=== PATIENT | female | born 1975 | race African-American/Black ===

== ENCOUNTER 2016-09-15 00:03 | Inpatient (IN) | payer OTHER ==
[2016-09-15] VITALS (12 sets, daily range): BP systolic 112–148; BP diastolic 63–87
[~2016-09-15] VITALS: Ht 167.6 cm; Wt 68.0 kg
--- NOTE | ~2016-09-15 | EKG ---
[address] [place] [address] ELECTROCARDIOGRAM REPORT Name: AGUSTO TAVAREZA Room #: 422-P ADM IN M.R.#: [id number] Admission: 09/15/16 Attend Phys: John Blanco MD Discharge: Date of : 77 Report #: [id number] THIS REPORT FOR: //name// [facility] ED Test Date: 2016-09-15 Test Time: 00:12:04 Pat Name: ESME TAVAREZ Department: Room: 422 Gender: F Environmental Science Program Director: ROLA : 1975 Requested By: Heather Sanchez Order Number: [id number] MD: Brad Daniel Measurements Intervals [place] Rate: 76 P: 78 DC: 175 QRS: 37 QRSD: 106 T: 49 QT: 376 QTc: 423 Interpretive Statements Sinus rhythm Prominent P waves, nondiagnostic Probable left ventricular hypertrophy ST elev, probable normal early repol pattern No previous ECG available for comparison Electronically Signed On 09-15-2016 15:31:12 CDT by Brad Daniel [email or web address] <ELECTRONICALLY SIGNED> By: rBad Daniel MD 09/15/16 1531 001 001 Brad Daniel MD /JEROME
--- NOTE | ~2016-09-15 | HC ---
[facility] [place] [address] CONSULTATION Name: ESME TAVAREZ Room #: 422-P [facility] IN .R.#: [id number] Admission: 09/15/16 Attend Phys: John Blanco MD Discharge: Date of : 77 Report #: [id number] THIS REPORT FOR: //name// CC: [facility] physician/PCP Jhon Blanco REASON FOR CONSULTATION: Chest pain. HISTORY OF PRESENT ILLNESS: The patient is a 40-year-old female with history of tobacco abuse, hypertension and strong family history for CAD who presents to the emergency room with chest pain. She reports that she works at [employer] and was having some chest heaviness radiating down her right arm, lasting about 20 minutes and resolved on its own. She had a second episode that was similar and more intense that resulted in some shortness of breath. She is currently chest pain free. She was found to be severely anemic and has received a blood transfusion. Denies PND, orthopnea. Does have some shortness of breath from climbing stairs. Denies presyncope or syncope. PAST MEDICAL HISTORY: 1. Hypertension. 2. Tobacco abuse. 3. Polycystic ovarian disease. 4. Heavy menses. SOCIAL HISTORY: She smokes. 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 FAMILY HISTORY: Significant for coronary artery disease and aortic dissection. ALLERGIES: IODINE, CODEINE, LATEX. MEDICATIONS: Have been reviewed including verapamil. REVIEW OF SYSTEMS: Twelve point review of systems was performed and was negative other than some nausea, vomiting after the blood transfusion. PHYSICAL EXAMINATION: VITAL SIGNS: Temperature is 36.8, pulse 53, respirations 16, blood pressure 135/75, sats 100%. GENERAL: No acute distress. HEENT: Oropharynx clear. NECK: Supple, no thyromegaly. HEART: Regular rate and rhythm with no murmurs, rubs, gallops. She does not have elevated jugular venous pressure. LUNGS: Clear to auscultation bilaterally. ABDOMEN: Soft, nontender, nondistended with no hepatosplenomegaly. EXTREMITIES: There is no clubbing, cyanosis, edema. NEUROLOGIC: Cranial nerves 2-12 are intact. [facility] [address] [place] [address] CONSULTATION Name: ESME TAVAREZ Room #: 422-P [facility] IN .R.#: [id number] Admission: 09/15/16 Attend Phys: John Blanco MD Discharge: Date of : 77 Report #: [id number] LABORATORY DATA: A 12-lead EKG shows sinus rhythm with possible LVH and no ischemic changes. Her labs reveal a hemoglobin of 7.9, potassium 3.8, creatinine 0.8. Troponins negative x 2. Chest x-ray, no acute process. ASSESSMENT AND PLAN: In summary, the patient is a 40-year-old with tobacco abuse, hypertension presenting with chest pain, found to be severely anemic. On exam, pushing over her right chest causes some pain, but she is not entirely sure if this is identical to the pain she experienced at [place]. As such, I recommended that she undergo an echocardiogram given her family history of heart disease as well as a nuclear stress test that she cannot exercise given her recent blood transfusion. She is still very fatigued. We will await these results and further treatment will be dictated by their findings. By: 1201 2103 Brad Daniel MD /nt
--- NOTE | ~2016-09-15 | EXE ---
[facility] [place] [address] STRESS ECHOCARDIOGRAM Name: ESME TAVAREZ Room #: 422-P [facility] IN ..#: [id number] Admission: 09/15/16 Attend Phys: John Blanco MD Discharge: Date of : 77 Date of Service: 09/17/16 1401 Report #: [id number] THIS REPORT FOR: //name// APPROVED REPORT Exam: Stress Echocardiogram Reason for Exam: Chest pain Patient Location: Echo lab Stress Nurse: Qi Wilkins RN HR: 75 bpm Rhythm: NSR Medical History Medical History: HTN Cardiac Risk Factors: HTN, FHX of CAD Exercise History: Indeterminate Procedure The patient underwent an Exercise Stress Test using the Jose Protocol. Blood pressure, heart rate, and EKG were monitored. An Echocardiogram was performed by diagnostic technician in four stages in quad fashion. At peak stress, four selected images were obtained and placed side by side with resting images for comparison. Testing Details Test: Exercise stress testing was performed using a Jose protocol. HR Resting HR: 75 bpm Max Heart Rate (APMHR): 181 bpm Max HR Achieved: 169 bpm Target HR (85% APMHR): 153 bpm % of APMHR: 93 Recovery HR: 83 bpm HR response to stress: Normal HR response to stress BP Resting BP: 178/104 mmHg Max BP: 182/96 mmHg Recovery BP: 140/72 mmHg ECG Resting ECG: NSR, nonspecific ST-T abnormalities Stress ECG: NSR, nonspecific ST-T abnormalities ST Change: Non-ischemic [facility] [address] [place] [address] STRESS ECHOCARDIOGRAM Name: ESME TAVAREZ Room #: 422-P [facility] IN M.R.#: [id number] Admission: 09/15/16 Attend Phys: John Blanco MD Discharge: Date of : 77 Date of Service: 09/17/16 140 Report #: [id number] Clinical Reason for Termination: Maximal effort Exercise duration: 9.5 min Exercise capacity: 11.7 METs Overall Exercise Capacity for Age: Normal Pre-Stress Echo The resting Echocardiogram showed normal left ventricular contractility with an estimated Ejection Fraction of about 60-65%. Post-Stress Echo The stress Echocardiogram showed normal left ventricular contractility with an estimated Ejection Fraction of about >70%. Clinical Normal augmentation of myocardial wall segments using a 17 segment model. Conclusion No clinical, EKG or echocardiographic evidence for ischemia. No prior study available for comparison. Other Information Study Quality: Excellent <Conclusion> No clinical, EKG or echocardiographic evidence for ischemia. <ELECTRONICALLY SIGNED> By: Alfie Olivo MD 09/17/16 140 140 1401 Alfie Olivo MD /INF
[~2016-09-15 00:03] MED LIST: COMPAZINE25 MG RECTAL; TOPAMAX SPRINKL15 M1; TORADOL 10 MG T10 MG PO
[2016-09-15] MEDS ORDERED: VERAPAMIL HCL80 MG PO (00:16)
[2016-09-15 00:55] LABS: RDW 20.2 % (10.5-14.5)
[2016-09-15 00:57] LABS: HEMATOCRIT 22.1 % (37.0-47.0); MCH 17.9 pg (26.0-34.0); MCHC 28.9 g/dL (28.0-37.0); MCV 61.8 fL (80.0-100.0); PLATELET COUNT 378 thou/uL (150-400); RBC 3.57 mil/uL (4.20-5.00); WBC 6.3 thou/uL (4.0-11.0)
[2016-09-15 01:01] LABS: MANUAL DIFF YES
[2016-09-15 01:03] LABS: HEMOGLOBIN 6.4 gm/dL (12.0-15.0)
[2016-09-15 01:07] LABS: ANION GAP 12 mmol/L (7-16); BUN 8 mg/dL (7-18); CALCIUM 8.7 mg/dL (8.5-10.1); CHLORIDE 104 mmol/L (98-107); CO2 25 mmol/L (21-32); CREATININE 0.8 mg/dL (0.6-1.3); GLUCOSE 89 mg/dL (70-99); POTASSIUM 3.4 mmol/L (3.5-5.1); SODIUM 141 mmol/L (136-145); TROPONIN-I < 0.04 ng/mL (<0.04-0.07)
[2016-09-15 01:35] LABS: ABSOLUTE NEUTROPHILS 3.1 thou/uL (1.4-8.2); HYPOCHROMASIA 3+; TOTAL CELL COUNT 100
[2016-09-15 01:36] LABS: ANISOCYTOSIS 2+; MACROCYTES 1+; MICROCYTES 3+
[2016-09-15 01:37] LABS: OVALOCYTES 1+
[2016-09-15 01:38] LABS: LARGE PLATELETS MANY; POLYCHROMASIA OCCASIONAL
[2016-09-15 12:06] LABS: % SATURATION 92 % (20-39); ANION GAP 7 mmol/L (7-16); BUN 9 mg/dL (7-18); CALCIUM 8.1 mg/dL (8.5-10.1); CHLORIDE 109 mmol/L (98-107); CO2 25 mmol/L (21-32); CREATININE 0.8 mg/dL (0.6-1.3); GLUCOSE 90 mg/dL (70-99); IRON 312 ug/dL (50-170); POTASSIUM 3.8 mmol/L (3.5-5.1); SODIUM 141 mmol/L (136-145); TIBC 338 ug/dL (250-450); TROPONIN-I < 0.04 ng/mL (<0.04-0.07); UIBC 26 ug/dL
[2016-09-15 12:34] LABS: FERRITIN 2 ng/mL (8-252)
[2016-09-15 15:42] LABS: HEMATOCRIT 26.4 % (37.0-47.0); HEMOGLOBIN 8.1 gm/dL (12.0-15.0)
[2016-09-15 17:17] LABS: HEMATOCRIT 26.5 % (37.0-47.0); HEMOGLOBIN 7.9 gm/dL (12.0-15.0)
[2016-09-16 05:30] VITALS: BP 133/82
[2016-09-16 08:15] VITALS: BP 137/75
[2016-09-16 11:40] VITALS: BP 138/85
[2016-09-16 16:00] VITALS: BP 132/77
[2016-09-16 20:00] VITALS: BP 142/97
[2016-09-17] VITALS: BP 137/92
[2016-09-17 04:47] LABS: HEMATOCRIT 29.4 % (37.0-47.0); HEMOGLOBIN 8.8 gm/dL (12.0-15.0); MCH 20.5 pg (26.0-34.0); MCHC 29.8 g/dL (28.0-37.0); RBC 4.29 mil/uL (4.20-5.00); RDW 25.3 % (10.5-14.5); WBC 7.5 thou/uL (4.0-11.0)
[2016-09-17 04:51] LABS: MCV 68.6 fL (80.0-100.0)
[2016-09-17 05:05] VITALS: BP 132/82
[2016-09-17 07:52] VITALS: BP 143/78
[2016-09-17] MEDS ORDERED: PROTONIX40 M1 PO (14:25)
[2016-09-17] MEDS ORDERED: IRON325 PO (14:25)
[2016-09-17 14:39] VITALS: BP 143/78
== END 2016-09-17 15:10 | disposition home or self-care (01) | DRG 313 ==
LOC: ER 00:03 → EROBS 01:53 → 4E 01:53
PROVIDERS: Emergency Medicine; Hospitalist; Nurse Practitioner
PROC: 30233N1 Transfusion of Nonautologous Red Blood Cells into Peripheral Vein, Percutaneous Approach (ICD-10-PCS; principal; 2016-09-15)
DX: R07.9 Chest pain, unspecified (principal); D64.9 Anemia, unspecified; F17.210 Nicotine dependence, cigarettes, uncomplicated; E87.6 Hypokalemia; N92.0 Excessive and frequent menstruation with regular cycle; I10 Essential (primary) hypertension; E28.2 Polycystic ovarian syndrome; Z82.49 Family history of ischemic heart disease and other diseases of the circulatory system; Z91.041 Radiographic dye allergy status; Z91.040 Latex allergy status; Z88.6 Allergy status to analgesic agent; Z80.9 Family history of malignant neoplasm, unspecified; Z83.3 Family history of diabetes mellitus; Z79.899 Other long term (current) drug therapy; Z71.6 Tobacco abuse counseling
CPT/HCPCS: 10183

== ENCOUNTER 2017-02-20 13:27 | Emergency (ER) | payer BC, OTHER ==
[~2017-02-20] VITALS: Ht 167.6 cm; Wt 72.6 kg
--- NOTE | ~2017-02-20 | EKG ---
[place] [address] [facility] [email or web address] [address] ELECTROCARDIOGRAM REPORT Name: ESME TAVAREZ Room #: DEP JUANA Harris#: [id number] Admission: 02/20/17 Attend Phys: Discharge: 02/20/17 Date of : 77 Report #: [id number] THIS REPORT FOR: //name// [facility] ED Test Date: 2017-02-20 Test Time: 13:32:21 Pat Name: ESME TAVAREZ Department: Room: Gender: F Bacteriologist Pharmaceutical: : 1975 Requested By: Connor Sousa Order Number: [id number] MD: Gabriel Wray Measurements Intervals [place] Rate: 75 P: 82 OR: 177 QRS: 36 QRSD: 101 T: 53 QT: 407 QTc: 455 Interpretive Statements Sinus arrhythmia Probable left atrial enlargement Compared to ECG 09/15/2016 00:12:04 No significant change was found Electronically Signed On 02-21-2017 12:40:40 CDT by Gabriel Wray [email or web address] <ELECTRONICALLY SIGNED> By: Gabriel Wray MD, [facility] 02/21/17 1240 1332 1332 Gabriel Wray MD, FACC /EPI
[~2017-02-20 13:27] MED LIST changes: +IRON325 PO; +PROTONIX40 M1 PO; +VERAPAMIL HCL80 MG PO
[2017-02-20 13:49] LABS: ABSOLUTE NEUTROPHILS 3.6 thou/uL (1.4-8.2); BASOPHILS 1.9 % (0.0-2.0); EOSINOPHILS 0.7 % (0.0-3.0); HEMATOCRIT 30.9 % (37.0-47.0); HEMOGLOBIN 9.7 gm/dL (12.0-15.0); MCH 25.2 pg (26.0-34.0); MCHC 31.5 g/dL (28.0-37.0); MCV 80.1 fL (80.0-100.0); MONOCYTES 5.7 % (1.0-8.0); PLATELET COUNT 322 thou/uL (150-400); POLYS 57.7 % (36.0-66.0); RBC 3.86 mil/uL (4.20-5.00); RDW 19.1 % (10.5-14.5); WBC 6.3 thou/uL (4.0-11.0)
[2017-02-20 13:51] LABS: MANUAL DIFF NO
[2017-02-20 14:00] LABS: ANION GAP 8 mmol/L (7-16); BUN 4 mg/dL (7-18); CALCIUM 8.6 mg/dL (8.5-10.1); CHLORIDE 107 mmol/L (98-107); CO2 25 mmol/L (21-32); CREATININE 0.7 mg/dL (0.6-1.0); GLUCOSE 94 mg/dL (74-106); POTASSIUM 3.4 mmol/L (3.5-5.1); SODIUM 140 mmol/L (136-145)
[2017-02-20 14:08] LABS: TROPONIN-I < 0.04 ng/mL (<0.04-0.07)
[2017-02-20 14:30] LABS: ALBUMIN 3.9 g/dL (3.4-5.0); ALKALINE PHOSPHATASE 57 U/L (46-116); DIRECT BILIRUBIN < 0.1 mg/dL (<0.1-0.3); SGOT 14 U/L (15-37); SGPT 12 U/L (30-65); TOTAL BILIRUBIN 0.2 mg/dL (<0.1-1.0); TOTAL PROTEIN 8.3 g/dL (6.4-8.2)
== END 2017-02-20 17:08 | disposition home or self-care (01) ==
LOC: ER 13:27
PROVIDERS: Emergency Medicine
DX: R07.89 Other chest pain (principal); R20.2 Paresthesia of skin; E28.2 Polycystic ovarian syndrome; F17.210 Nicotine dependence, cigarettes, uncomplicated; F10.99 Alcohol use, unspecified with unspecified alcohol-induced disorder; Z88.5 Allergy status to narcotic agent; Z91.041 Radiographic dye allergy status; Z91.040 Latex allergy status

== ENCOUNTER 2017-11-18 13:59 | Emergency (ER) | payer OTHER ==
[~2017-11-18] VITALS: Ht 165.1 cm; Wt 70.3 kg
[2017-11-18 14:50] LABS: HEMOGLOBIN 6.8 gm/dL (12.0-15.0); MCV 67.8 fL (80.0-100.0); PLATELET COUNT 396 thou/uL (150-400); RBC 3.25 mil/uL (4.20-5.00); RDW 19.7 % (10.5-14.5); WBC 6.1 thou/uL (4.0-11.0)
[2017-11-18 14:56] LABS: CALCIUM 8.6 mg/dL (8.5-10.1); CREATININE 0.7 mg/dL (0.6-1.0); POTASSIUM 3.6 mmol/L (3.5-5.1)
[2017-11-18 15:20] LABS: ABSOLUTE NEUTROPHILS 3.5 thou/uL (1.4-8.2)
[2017-11-18 15:22] LABS: ANISOCYTOSIS 2+; BURR CELLS 1+; HYPOCHROMASIA 2+; MICROCYTES 2+; SCHISTOCYTES OCCASIONAL; TARGET CELLS 1+
[2017-11-18] MEDS ORDERED: IRON325 PO (18:56)
[2017-11-18] MEDS ORDERED: KRISTALOSE20 GM PO (18:56)
== END 2017-11-18 19:30 | disposition home or self-care (01) ==
LOC: ER 13:59
PROVIDERS: Emergency Medicine
DX: D64.9 Anemia, unspecified (principal); N92.0 Excessive and frequent menstruation with regular cycle; E28.2 Polycystic ovarian syndrome; F17.210 Nicotine dependence, cigarettes, uncomplicated; Z91.041 Radiographic dye allergy status; Z88.5 Allergy status to narcotic agent; Z91.040 Latex allergy status

== ENCOUNTER 2018-04-22 12:41 | Inpatient (IN) | payer OTHER ==
[~2018-04-22] VITALS: Ht 167.6 cm; Wt 70.4 kg
[2018-04-22] VITALS (7 sets, daily range): BP systolic 119–157; BP diastolic 58–92
--- NOTE | ~2018-04-22 | P ---
[facility] [place] [address] PROCEDURE REPORT Name: ESME TAVAREZ Room #: 454-P [facility] IN M.R.#: [id number] Admission: 04/22/18 Attend Phys: Jonathan Corrigan MD Discharge: Date of : 77 Report #: [id number] THIS REPORT FOR: //name// CC: [facility] physician/PCP Chris Corrigan MD PROCEDURE: Diagnostic colonoscopy She is a patient of Dr. Jonathan Corrigan and this is Dr. Kimberly Lerma, nela. She is also patient of Dr. Chris Troy. INDICATION FOR PROCEDURE: This patient has had hematochezia. She has had a hemoglobin of 6, but has also experienced some dysfunctional uterine bleeding. It has been difficult for her to get her hemoglobin above 7 with all of the blood loss that she has been experiencing. Colonoscopy is being performed to evaluate for sources other than external hemorrhoids that might explain her painless hematochezia. Informed consent for this procedure was obtained prior to the administration of any medication. The risks of the procedure, which include bleeding, perforation, infection, complications of sedation and the possibility I could miss something have been explained to the patient and she has indicated her consent by signing. Propofol was slowly titrated before and during this procedure for patient comfort by the anesthesia service. Digital rectal exam was performed. The patient has extraordinarily enlarged external hemorrhoids that were nonbleeding at the present time. No internal masses were palpated, although it does feel like she may have some internal hemorrhoids as well. There was no blood on the glove after the digital rectal exam. Then, the Fujinon colonoscope was introduced through the anal sphincter and advanced under direct visualization to the terminal ileum. Findings are noted on withdrawal of the scope. The terminal ileal mucosa appears normal. Cecum, normal mucosa. Ascending colon, normal mucosa. Hepatic flexure, normal mucosa. Transverse colon, normal mucosa. Splenic flexure, normal mucosa. Descending colon, normal mucosa. Sigmoid colon, normal mucosa. Rectum, normal mucosa. Retroflex view does reveal the presence of some internal hemorrhoids that may have been the source of some significant GI blood loss consisting of hematochezia. The scope was withdrawn slowly through the anal canal. The patient does have numerous external hemorrhoids that have been painful and have been bleeding for her as well. The scope was withdrawn. The patient went to the recovery area in stable condition. She tolerated the procedure well. [address] [address] PROCEDURE REPORT Name: ESME TAVAREZ Room #: 454-P ADM IN M.R.#: [id number] Admission: 04/22/18 Attend Phys: Jonathan Corrigan MD Discharge: Date of : 77 Report #: [id number] IMPRESSION: Normal colonoscopic exam to the terminal ileum except for internal and external hemorrhoids as described above. RECOMMENDATIONS: For her to use sitz baths. She can also use lidocaine ointment 5% to the anal area q. 6 hours p.r.n. for pain. I have also recommended her to take Citrucel 500 mg 2 tabs p.o. every day with 16 ounces of liquid to prevent constipation. I would recommend that she have a surgical consultation for evaluation for possible hemorrhoidectomy. Thank you very much once again for allowing me to participate in her care, Dr. Corrigan. <ELECTRONICALLY SIGNED> By: Kimberly Lerma DO 04/24/18 2034 1130 1427 Kimberly Lerma DO /nt
--- NOTE | ~2018-04-22 | EKG ---
[address] [place] [address] ELECTROCARDIOGRAM REPORT Name: ESME TAVAREZ Room #: [facility].RAvril#: [id number] Admission: Attend Phys: Discharge: Date of : 77 Report #: [id number] THIS REPORT FOR: //name// [facility] ED Test Date: 2018-04-22 Test Time: 13:01:03 Pat Name: ESME TAVAREZ Department: Room: Gender: F Wirer Maintenance: LETICIA : 1975 Requested By: Martine Hutchinson Order Number: [id number] MD: Anthony Healy Measurements Intervals [place] Rate: 98 P: 68 MT: 162 QRS: 19 QRSD: 92 T: 49 QT: 367 QTc: 469 Interpretive Statements Sinus rhythm Left atrial enlargement Compared to ECG 02/20/2017 13:32:21 no significant changes Electronically Signed On 04-22-2018 13:39:46 ENGINEER BOOSTER AND EXHAUSTER by Anthony Healy [email or web address] <ELECTRONICALLY SIGNED> By: Anthony Healy MD 04/22/18 1339 1301 1301 Anthony Healy MD /EPI
[~2018-04-22 12:41] MED LIST changes: +KRISTALOSE20 GM PO
[2018-04-22 13:03] LABS: URINE BILIRUBIN NEGATIVE (Negative); URINE BLOOD NEGATIVE (Negative); URINE CLARITY OTHER; URINE COLOR YELLOW; URINE GLUCOSE-RANDOM* NEGATIVE (Negative); URINE KETONES NEGATIVE (Negative); URINE LEUKOCYTES 1+ (Negative); URINE NITRITE NEGATIVE (Negative); URINE PROTEIN (DIPSTICK) NEGATIVE (Negative); URINE SPECIFIC GRAVITY 1.025 (1.005-1.035); URINE UROBILINOGEN 0.2 E.U./dl (0.2-1.0)
[2018-04-22 13:18] LABS: MCH 17.7 pg (26.0-34.0)
[2018-04-22 13:20] LABS: HEMATOCRIT 21.4 % (37.0-47.0); MCHC 28.7 g/dL (28.0-37.0); MCV 61.7 fL (80.0-100.0); PLATELET COUNT 382 thou/uL (150-400); RBC 3.47 mil/uL (4.20-5.00); WBC 5.3 thou/uL (4.0-11.0)
[2018-04-22 13:22] LABS: HEMOGLOBIN 6.1 gm/dL (12.0-15.0)
[2018-04-22 13:26] LABS: CALCIUM 8.5 mg/dL (8.5-10.1); CREATININE 0.9 mg/dL (0.6-1.0); POTASSIUM 3.2 mmol/L (3.5-5.1)
[2018-04-22 14:00] LABS: BACTERIA 1-9 Few /HPF (None Seen); CASTS None Seen /LPF (None Seen); CRYSTALS None Seen /LPF (None Seen); MUCUS 4-6 Moderate strn/LPF (None Seen); SQUAMOUS 4-10 Moderate /LPF (0-3); URINE RBC 3-10 Few /HPF (0-2); URINE WBC 6-15 Few /HPF (0-5)
[2018-04-22 14:20] LABS: % SATURATION 3 % (20-39); IRON 10 ug/dL (50-170); TIBC 350 ug/dL (250-450)
[2018-04-22 14:26] LABS: ABSOLUTE NEUTROPHILS 3.2 thou/uL (1.4-8.2)
[2018-04-22 14:28] LABS: ANISOCYTOSIS 1+; HYPOCHROMASIA 3+; MICROCYTES 3+; OVALOCYTES OCCASIONAL; SCHISTOCYTES 1+; TARGET CELLS OCCASIONAL
[2018-04-22 22:14] LABS: HEMATOCRIT 23.3 % (37.0-47.0); HEMOGLOBIN 6.7 gm/dL (12.0-15.0)
[2018-04-23 04:40] LABS: HEMOGLOBIN 6.6 gm/dL (12.0-15.0)
[2018-04-23 04:42] LABS: HEMATOCRIT 22.6 % (37.0-47.0)
[2018-04-23 08:36] LABS: CALCIUM 8.2 mg/dL (8.5-10.1); CREATININE 0.8 mg/dL (0.6-1.0)
[2018-04-23 08:37] LABS: POTASSIUM 4.7 mmol/L (3.5-5.1)
[2018-04-23 08:59] VITALS: BP 133/85
[2018-04-23 13:48] VITALS: BP 138/81
[2018-04-23 20:05] LABS: HEMATOCRIT 24.8 % (37.0-47.0); HEMOGLOBIN 7.2 gm/dL (12.0-15.0)
[2018-04-24 04:00] VITALS: BP 136/72
[2018-04-24 06:24] LABS: HEMATOCRIT 23.4 % (37.0-47.0); HEMOGLOBIN 6.9 gm/dL (12.0-15.0); MCH 19.9 pg (26.0-34.0); MCHC 29.7 g/dL (28.0-37.0); RBC 3.49 mil/uL (4.20-5.00); RDW 24.2 % (10.5-14.5)
[2018-04-24 06:25] LABS: MCV 66.9 fL (80.0-100.0)
[2018-04-24 06:33] LABS: CALCIUM 7.9 mg/dL (8.5-10.1); CREATININE 0.7 mg/dL (0.6-1.0)
[2018-04-24 06:38] LABS: POTASSIUM 3.6 mmol/L (3.5-5.1)
[2018-04-24 08:26] VITALS: BP 143/89
[2018-04-24 14:31] LABS: HEMATOCRIT 23.7 % (37.0-47.0); HEMOGLOBIN 7.1 gm/dL (12.0-15.0)
[2018-04-24 14:48] LABS: APTT 33.4 Seconds (24.5-32.8); INR 1.1; PROTIME 11.1 Seconds (9.3-11.4)
[2018-04-24 15:05] VITALS: BP 139/75
[2018-04-24 16:29] VITALS: BP 137/79; BP 139/83
[2018-04-24 20:00] VITALS: BP 131/68
[2018-04-25 02:59] VITALS: BP 143/93
[2018-04-25 06:27] LABS: HEMATOCRIT 26.2 % (37.0-47.0); MCH 21.7 pg (26.0-34.0); MCHC 30.7 g/dL (28.0-37.0); MCV 70.7 fL (80.0-100.0); RBC 3.71 mil/uL (4.20-5.00); RDW 27.2 % (10.5-14.5)
[2018-04-25 06:30] LABS: CALCIUM 7.9 mg/dL (8.5-10.1); CREATININE 0.7 mg/dL (0.6-1.0); POTASSIUM 3.9 mmol/L (3.5-5.1)
[2018-04-25 15:58] VITALS: BP 149/86
[2018-04-25 19:37] VITALS: BP 151/69
[2018-04-26 05:06] VITALS: BP 131/65
[2018-04-26 07:04] LABS: HEMATOCRIT 24.9 % (37.0-47.0); HEMOGLOBIN 7.8 gm/dL (12.0-15.0); MCH 22.1 pg (26.0-34.0); MCHC 31.4 g/dL (28.0-37.0); MCV 70.2 fL (80.0-100.0); RBC 3.54 mil/uL (4.20-5.00)
[2018-04-26 13:00] VITALS: BP 153/86
[2018-04-26 14:00] VITALS: BP 158/76
[2018-04-26 19:31] VITALS: BP 150/91
[2018-04-27] VITALS (9 sets, daily range): BP systolic 133–150; BP diastolic 71–100
[2018-04-27] MEDS ORDERED: MIRALAX17 GM PO (15:40)
[2018-04-27] MEDS ORDERED: KEFLEX500 M1 PO (15:40)
[2018-04-27] MEDS ORDERED: LIDOCAINE35.44 GM TOP (15:41)
[2018-04-27] MEDS ORDERED: NORCO 5-325 TA1 EACH PO (15:43)
== END 2018-04-27 18:00 | disposition home or self-care (01) | DRG 744 ==
LOC: ER 12:41 → EROBS 13:36 → 4W 13:36
PROVIDERS: Hospitalist; Internal Medicine; Nurse Practitioner; Nurse Practitioner Family; Obstetrics & Gynecology; Student in an Organized Health Care Education/Training Program
PROC: 30233N1 Transfusion of Nonautologous Red Blood Cells into Peripheral Vein, Percutaneous Approach (ICD-10-PCS; principal; 2018-04-23)
PROC: 0DJD8ZZ Inspection of Lower Intestinal Tract, Via Natural or Artificial Opening Endoscopic (ICD-10-PCS; 2018-04-24)
PROC: 069Y3ZZ Drainage of Lower Vein, Percutaneous Approach (ICD-10-PCS; 2018-04-26)
PROC: 0UDB8ZZ Extraction of Endometrium, Via Natural or Artificial Opening Endoscopic (ICD-10-PCS; 2018-04-27)
DX: D25.9 Leiomyoma of uterus, unspecified (principal); K92.2 Gastrointestinal hemorrhage, unspecified; N39.0 Urinary tract infection, site not specified; N92.1 Excessive and frequent menstruation with irregular cycle; K64.5 Perianal venous thrombosis; N93.9 Abnormal uterine and vaginal bleeding, unspecified; N92.0 Excessive and frequent menstruation with regular cycle; E28.2 Polycystic ovarian syndrome; F17.210 Nicotine dependence, cigarettes, uncomplicated; D64.9 Anemia, unspecified; I10 Essential (primary) hypertension; K64.8 Other hemorrhoids; E87.6 Hypokalemia; K59.00 Constipation, unspecified; G43.909 Migraine, unspecified, not intractable, without status migrainosus; Z88.6 Allergy status to analgesic agent; Z91.041 Radiographic dye allergy status; Z82.49 Family history of ischemic heart disease and other diseases of the circulatory system; Z71.6 Tobacco abuse counseling; Z83.3 Family history of diabetes mellitus; Z80.41 Family history of malignant neoplasm of ovary; Z80.3 Family history of malignant neoplasm of breast
CPT/HCPCS: 10045; 50010; 50101; 50386; 70005

== ENCOUNTER → 2018-05-23 | Outpatient (CLI) | payer OTHER ==
[~2018-05-23] MED LIST changes: +KEFLEX500 M1 PO; +LIDOCAINE35.44 GM TOP; +MIRALAX17 GM PO; +NORCO 5-325 TA1 EACH PO
--- NOTE | ~2018-05-23 | 2DMMODE ---
[facility] [place] [address] 2 D/M-MODE ECHOCARDIOGRAM Name: ESME TAVAREZ Room #: REG CL [facility]#: [id number] Admission: 05/23/18 Attend Phys: Brad Daniel Discharge: Date of : 77 Date of Service: 05/23/18 1742 Report #: [id number] THIS REPORT FOR: //name// APPROVED REPORT Study performed: 05/23/2018 15:01:12 EXAM: Comprehensive 2D, Doppler, and color-flow Echocardiogram Patient Location: Out-Patient Status: routine BSA: 1.82 HR: 85 bpm BP: 124/84 mmHg Rhythm: NSR Other Information Study Quality: Good Indications Murmur Hypertension/HDD 2D Dimensions RVDd: 35.98 mm IVSd: 10.94 (7-11mm) LVOT Diam: 20.07 (18-24mm) LVDd: 49.78 mm PWd: 11.06 (7-11mm) Ascending Ao: 33.81 (22-36mm) LVDs: 35.50 (25-40mm) Aortic Root: 29.43 mm Volumes Left Atrial Volume (Systole) Single Plane 4CH: 38.05 mL Single Plane 2CH: 55.79 mL LA ESV Index: 27.00 mL/m2 Aortic Valve AoV Peak Gabriel.: 1.93 m/s AO Peak Gr.: 14.87 mmHg LVOT Max P.46 mmHg LVOT Max V: 1.54 m/s CHEKO Vmax: 2.52 cm2 Mitral Valve E/A Ratio: 1.2 MV Decel. Time: 198.48 ms [facility] [address] [place] [address] 2 D/M-MODE ECHOCARDIOGRAM Name: ESME TAVAREZ Room #: REG CL [facility]#: [id number] Admission: 05/23/18 Attend Phys: Brad Daniel Discharge: Date of : 77 Date of Service: 05/23/18 1742 Report #: [id number] MV E Max Gabriel.: 0.97 m/s MV A Gabriel.: 0.83 m/s MV PHT: 57.56 ms IVRT: 62.28 ms Pulmonary Valve PV Peak Gabriel.: 1.08 m/s PV Peak Gr.: 4.67 mmHg Pulmonary Vein P Vein S: 0.53 m/s P Vein D: 0.56 m/s P Vein S/D Ratio: 0.95 Tricuspid Valve TR Peak Gabriel.: 2.35 m/s RAP Estimate: 5.00 mmHg TR Peak Gr.: 22.13 mmHg Left Ventricle The left ventricle is normal size. There is normal LV segmental wall motion. Borderline concentric left ventricular hypertrophy. The left ventricular systolic function is normal. LVEF is 55-60%. The left ventricular diastolic function is normal. Right Ventricle The right ventricle is normal size. The right ventricular systolic function is normal. Atria The left atrium size is normal. The right atrium size is normal. Aortic Valve The aortic valve is normal in structure. Trace aortic regurgitation. There is no aortic valvular stenosis. Mitral Valve The mitral valve is normal in structure. Trace mitral regurgitation. No evidence of mitral valve stenosis. Tricuspid Valve The tricuspid valve is normal in structure. Trace tricuspid regurgitation. Estimated PAP is 25-30mmHg. Pulmonic Valve The pulmonary valve is normal in structure. Trace pulmonic regurgitation. [facility] [place] [address] 2 D/M-MODE ECHOCARDIOGRAM Name: ESME TAVAREZ Room #: REG CL [facility]#: [id number] Admission: 05/23/18 Attend Phys: Brad Daniel Discharge: Date of : 77 Date of Service: 05/23/18 1742 Report #: [id number] Great Vessels The aortic root is normal in size. The ascending aorta is normal in size. IVC is normal in size and collapses >50% with inspiration. Pericardium There is no pericardial effusion. <Conclusion> The left ventricular systolic function is normal. There is normal LV segmental wall motion. LVEF 55-60%. The aortic valve is normal in structure. Trace aortic regurgitation, no stenosis. The mitral valve is normal in structure. Trace mitral regurgitation. Trace tricuspid regurgitation. Estimated pulmonary artery pressure of 25-30mmHg. There is no pericardial effusion. <ELECTRONICALLY SIGNED> By: Gabriel Wray MD, FACC 05/23/181741 41 41 Gabriel Wray MD, FACC /INF
== END ==
LOC: CV 08:38
DX: I10 Essential (primary) hypertension (principal); E04.1 Nontoxic single thyroid nodule; R00.2 Palpitations; R06.09 Other forms of dyspnea

== ENCOUNTER → 2018-09-11 | Outpatient (CLI) | payer OTHER | LOC: ULTRA 12:23 | DX: D25.9 Leiomyoma of uterus, unspecified (principal) ==

== ENCOUNTER 2019-02-04 16:47 | Emergency (ER) | payer OTHER ==
[~2019-02-04] VITALS: Ht 165.1 cm; Wt 72.6 kg
[2019-02-04] MEDS ORDERED: MAXZIDE-25 MG1 EACH PO (17:31)
[2019-02-04] MEDS ORDERED: TOPAMAX50 MG PO (17:32)
[2019-02-04] MEDS ORDERED: AMLODIPINE BESY10 MG PO (17:32)
[2019-02-04 17:34] LABS: AMP/METHAMP Negative (Negative); BARBITURATES Negative (Negative); BENZODIAZEPINES Negative (Negative); COCAINE Negative (Negative); METHADONE Negative (Negative); OPIATES Negative (Negative); PCP Negative (Negative)
[2019-02-04 18:04] LABS: ABSOLUTE NEUTROPHILS 3.4 thou/uL (1.4-8.2); BASOPHILS 1.7 % (0.0-2.0); EOSINOPHILS 0.8 % (0.0-3.0); HEMATOCRIT 43.9 % (37.0-47.0); HEMOGLOBIN 14.7 gm/dL (12.0-15.0); LYMPHOCYTES 33.5 % (24.0-44.0); MCH 31.2 pg (26.0-34.0); MCHC 33.5 g/dL (28.0-37.0); MCV 93.3 fL (80.0-100.0); MONOCYTES 7.3 % (1.0-8.0); PLATELET COUNT 287 thou/uL (150-400); POLYS 56.7 % (36.0-66.0); RBC 4.71 mil/uL (4.20-5.00); WBC 6.1 thou/uL (4.0-11.0)
[2019-02-04 18:13] LABS: ANION GAP 12 mmol/L (7-16); BUN 6 mg/dL (7-18); CALCIUM 9.6 mg/dL (8.5-10.1); CHLORIDE 102 mmol/L (98-107); CO2 24 mmol/L (21-32); CREATININE 1.2 mg/dL (0.6-1.0); GLUCOSE 95 mg/dL (74-106); POTASSIUM 3.4 mmol/L (3.5-5.1); SODIUM 138 mmol/L (136-145)
[2019-02-04 18:24] LABS: ALBUMIN 4.4 g/dL (3.4-5.0); MAGNESIUM 2.1 mg/dL (1.8-2.4); SGOT 13 U/L (15-37); SGPT 18 U/L (30-65); TOTAL BILIRUBIN 0.4 mg/dL (<0.1-1.0); TOTAL PROTEIN 9.5 g/dL (6.4-8.2); TROPONIN-I <0.06 ng/mL (<0.06)
[2019-02-04 22:04] VITALS: BP 113/79
--- NOTE | 2019-02-06 13:52 | EKG ---
[place] [address] [facility] [place] [address] ELECTROCARDIOGRAM REPORT Name: ESME TAVAREZ Room #: DEP JUANA Harris#: [id number] Admission: 02/04/19 Attend Phys: Discharge: 02/04/19 Date of : 77 Report #: [id number] THIS REPORT FOR: //name// [facility] ED Test Date: 2019-02-04 Test Time: 17:58:47 Pat Name: ESME TAVAREZ Department: Room: Gender: F Telephonic Rn: KRISTOPHER : 1975 Requested By: Lobo Hernadez Order Number: [id number] MD: Gabriel Wray Measurements Intervals [place] Rate: 88 P: 70 WV: 168 QRS: 26 QRSD: 90 T: 46 QT: 360 QTc: 436 Interpretive Statements Sinus rhythm No significant abnormality Compared to ECG 04/22/2018 13:01:03 No significant change was found Electronically Signed On 02-06-2019 13:52:14 CDT by Gabriel Wray [email or web address] <ELECTRONICALLY SIGNED> By: Gabriel Wray MD, [facility] 02/06/19 1352 1758 1758 Gabriel Wray MD, FACC /EPI
== END 2019-02-04 22:04 | disposition home or self-care (01) ==
LOC: ER 16:47
PROVIDERS: Emergency Medicine
DX: R07.9 Chest pain, unspecified (principal); R51 Headache; M54.2 Cervicalgia; R11.2 Nausea with vomiting, unspecified; I10 Essential (primary) hypertension; E28.2 Polycystic ovarian syndrome; F17.210 Nicotine dependence, cigarettes, uncomplicated; Z91.041 Radiographic dye allergy status; Z91.040 Latex allergy status; Z88.6 Allergy status to analgesic agent

== ENCOUNTER → 2019-02-20 | Outpatient (CLI) | payer OTHER ==
[~2019-02-20] MED LIST changes: +AMLODIPINE BESY10 MG PO; +MAXZIDE-25 MG1 EACH PO; +TOPAMAX50 MG PO
== END ==
LOC: ULTRA 13:37
DX: D25.9 Leiomyoma of uterus, unspecified (principal); E28.2 Polycystic ovarian syndrome

== ENCOUNTER 2019-04-07 08:13 | Inpatient (IN) | payer OTHER ==
[~2019-04-07] VITALS: Ht 167.6 cm; Wt 77.6 kg
[~2019-04-07 08:13] MED LIST changes: +MIRENA1 EACH IY
[2019-04-07 08:51] LABS: URINE BILIRUBIN NEGATIVE (Negative); URINE BLOOD NEGATIVE (Negative); URINE CLARITY CLEAR; URINE COLOR YELLOW; URINE GLUCOSE-RANDOM* NEGATIVE (Negative); URINE KETONES NEGATIVE (Negative); URINE LEUKOCYTES TRACE (Negative); URINE NITRITE NEGATIVE (Negative); URINE PROTEIN (DIPSTICK) NEGATIVE (Negative); URINE UROBILINOGEN 0.2 E.U./dl (0.2-1.0)
[2019-04-07 09:00] LABS: HEMATOCRIT 42.2 % (37.0-47.0); HEMOGLOBIN 13.8 gm/dL (12.0-15.0); MCHC 32.7 g/dL (28.0-37.0); MCV 94.7 fL (80.0-100.0); RBC 4.45 mil/uL (4.20-5.00); RDW 14.6 % (10.5-14.5)
[2019-04-07 09:03] LABS: SQUAMOUS 4-10 Moderate /LPF (0-3)
[2019-04-07 09:04] LABS: BACTERIA 1-9 Few /HPF (None Seen); CASTS None Seen /LPF (None Seen); URINE RBC 0-2 Rare /HPF (0-2); URINE WBC 0-5 Rare /HPF (0-5)
[2019-04-07 09:07] VITALS: BP 124/82
[2019-04-07 09:09] LABS: CALCIUM 9.3 mg/dL (8.5-10.1); POTASSIUM 3.6 mmol/L (3.5-5.1)
--- NOTE | 2019-04-07 16:33 | NUR ---
PT ARRIVED ON UNIT 1458 HAD REPORT POST OP FROM [facility]. PT ALERT XS 4. LUNGS CTA LOONEY CATH TO D/D WITH CLEAR YELLOW UNINE IN LOONEY BAG GIVEN PRN MORPHINE IV PUSH. FLUIDS INFUSING ORDERED. PT GIVEN ICE CHIPS AND FROZEN ICE ORDERED. ABD HAS DERMA RAO TO ABD INCISION SITES. VS WAS 8.0 16 96 119/75 O2 SAT 100 RA.PT PLEASANT AND COOPERATIVE.
[2019-04-07 16:36] VITALS: BP 112/64
--- NOTE | 2019-04-07 16:49 | NUR ---
PT RESTING IN BED AT 1600 V.S. 97.6 18 73 112/64 O2 SAT 100 RA.
[2019-04-07 21:30] VITALS: BP 144/69
[2019-04-08 00:30] VITALS: BP 114/75
--- NOTE | 2019-04-08 05:09 | NUR ---
PATIENT ALERT AND ORIENTED X4. C/O PAIN, NAUSEA AND VOMITING. WAS TOO EARLY FOR PAIN OR NAUSEA MED. DR QUINTANILLA WAS CALLED AND AN ORDER WAS OBTAINED TO GIVE COMPAZINE FOR THE NAUSEA AND THE PAIN MED EARLY. GAVE BOTH TO PATIENT AND WAS ASLEEP WITH IN 30 MIN. PATIENT UP TO BATHROOM WITH HELP OF HER MOTHER. STATED SHE NEEDED TO CLEAN HERSELF UP. MOTHER AT BEDSIDE. LOONEY PATENT CLEAR YELLOW URINE. SLEPT MOST OF NIGHT.
[2019-04-08 05:19] LABS: HEMATOCRIT 29.8 % (37.0-47.0); MCH 30.9 pg (26.0-34.0); MCHC 32.8 g/dL (28.0-37.0); RBC 3.17 mil/uL (4.20-5.00); RDW 14.7 % (10.5-14.5)
[2019-04-08 05:22] LABS: HEMOGLOBIN 9.8 gm/dL (12.0-15.0)
[2019-04-08 06:06] LABS: ALBUMIN 2.9 g/dL (3.4-5.0); CALCIUM 8.2 mg/dL (8.5-10.1); CREATININE 0.7 mg/dL (0.6-1.0); POTASSIUM 4.2 mmol/L (3.5-5.1); TOTAL BILIRUBIN 0.4 mg/dL (<0.1-1.0); TOTAL PROTEIN 6.2 g/dL (6.4-8.2)
--- NOTE | 2019-04-08 13:14 | NUR ---
LOONEY CATH DCD AT THIS TIME PRN PAIN MED ALSO GIVEN.
[2019-04-08 18:37] VITALS: BP 122/71
[2019-04-08 19:25] VITALS: BP 118/73
[2019-04-09 06:09] VITALS: BP 107/63
--- NOTE | 2019-04-09 06:32 | NUR ---
PATIENT ALERT AND ORIENTED X4. UP TO BATHROOM BY SELF. C/O PAIN, MED GIVEN. IV FLUIDS RUNNING. NO FLATUS YET. SLEPT MOST OF NIGHT.
[2019-04-09 09:54] VITALS: BP 120/78
--- NOTE | 2019-04-09 14:34 | NUR ---
INITIAL ASSESSMENT: Received high risk nursing referral. SW reviewed chart and spoke with nursing. Pt was admitted from home. Pt is POD #2 from Laparoscopy converted to total abdominal hysterectomy. Pt is progressing towards goals for discharge. Discharge home is anticipated for tomorrow. SW met with pt at bedside. Introduced role of SW. Pt is alert/orientated x 4. Pt reports she lives at home with family. Prior to admission, pt was independent with ADLs. No use of DME or hx of services or post-acute placement. 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 No discharge needs identified at this time. SW is available to assist should needs arise.
--- NOTE | 2019-04-09 18:06 | PATH ---
[facility] [place] [address] PATHOLOGY RPT PROCEDURE Name: ESME TAVAREZ Room #: 445-P [facility] IN M.R.#: [id number] Admission: 04/07/19 Date of : 77 Discharge: Report #: [id number] Path Case #: [id number] [facility] Accession Number: [id number] . 01 Material submitted: . uterus - UTERUS, CERVIX, RIGHT FALLOPIAN TUBE AND OVARY, AND LEFT FALLOPIAN TUBE. Modifiers: bilateral . 01 Clinical history: . Benign neoplasm of connective and other soft tissues, dysfunctional uterine bleeding, excessive and frequent menstruation, pelvic pain . 02 Diagnosis: Uterus, cervix, right fallopian tube and ovary, left fallopian tube, hysterectomy with right salpingo-oophorectomy and left salpingectomy: - Weakly proliferative endometrium; negative for hyperplasia, atypia or malignancy. - Leiomyomata, measuring 4.8 cm and 2.5 cm in greatest dimension associated with degenerative changes. - Mild chronic cervicitis; negative for dysplasia. - Right ovary with follicular cysts and physiologic changes as well as congestion. - Bilateral fallopian tubes with congestion and no significant diagnostic abnormalities. . (IUV:mml; 04/09/2019) QLM 04/09/2019 1327 Local . 02 Electronically signed: . Rachelle Murphy MD, Pathologist NPI- [id number] . 01 Gross description: . The specimen is received in formalin, labeled "Esme Tavarez, uterus, cervix, right fallopian tube and ovary, left fallopian tube" and consists of a 217 g enlarged uterus with attached cervix measuring 9.8 cm S-I, 7.2 cm cornu-cornu, and 6.5 cm A-P. Attached is the right tubo-ovarian complex (17 g) consisting of a fimbriated fallopian tube segment measuring 6.5 cm in length and up to 0.7 cm in diameter attached to a cerebriform pink-louis ovary (3.2 x 2.0 x 0.9 cm). Detached is the left fimbriated fallopian tube (4 g) measuring 6.3 cm in length and up to 0.7 cm in diameter. Both fallopian tubes are status post tubal ligation with a metal clip on the right tube but no clip on the left tube. Uterine serosa is nodular, purple-pink, smooth, and shiny. The 1.6 cm slitlike cervical os is surrounded by glistening pink-louis focally hemorrhagic ectocervical mucosa. It is bivalved revealing a corrugated endocervical canal measuring 2.0 cm in length. The endometrial cavity is roughly triangular [address] [address] PATHOLOGY RPT PROCEDURE Name: ESME TAVAREZ Room #: 445-P [facility] IN M.R.#: [id number] Admission: 04/07/19 Date of : 77 Discharge: Report #: [id number] Path Case #: [id number] measuring 5.5 cm in length and up to 4.2 cm in diameter which is lined by a pink-red endometrium measuring 0.1 cm or less. Present in the uterine cavity is a plastic white T shaped IUD measuring 3.3 x 3.0 cm with attached metal wire measuring 7.5 cm in length. The cervix reveals nabothian cysts. The myometrium is pink-louis measuring up to 4.6 cm. Occupying over 70% of the anterior myometrium is a partially degenerated yellow-white whorled nodule measuring 4.8 x 4.2 cm. A second submucosal nodule is present in the posterior myometrium measuring 2.5 x 1.5 cm. This nodule shows homogeneous whorled white cut surfaces. No additional nodules are identified. There is a focus of possible adenomyosis in the posterior myometrium. . Both the right and left fimbriated fallopian tube segments are purple-bajwa, partially hemorrhagic. Both show dilated lumens proximal the tubal ligation and central well-defined lumens distal the ligation. Adjacent the right fallopian tube, the paratubal tissue has abundant blood clot/hemorrhagic cut surfaces. The right ovary reveals multiple uniloculated subcortical cysts containing clear fluid measuring up to 0.5 cm. Adult School Counselor sections are submitted as follows: . A1: Anterior cervix A2: Posterior cervix A3: Anterior endomyometrium A4: Posterior myometrium to include possible adenomyosis A5-A6: Degenerated anterior nodule A7: Posterior subserosal nodule A8: Right fallopian tube with paratubal blood clot A9: Right ovary A10: Left fallopian tube (SDY; 04/08/2019) SYU/SYU 04/09/2019 1325 Local . 02 Pathologist provided ICD-10: D25.9, N72, N83.01 . 02 CPT . 317818 Specimen Comment: A courtesy copy of this report has been sent to Specimen Comment: [phone], . Specimen Comment: Report sent to / DR BOOKER Performed at: [address], [place], [place] [id number] MD Juan Winslow MD Phone: [phone] Performed at: [address] [id number] MD Rachelle Murphy MD Phone: [phone]
[2019-04-09 19:27] VITALS: BP 142/87
--- NOTE | 2019-04-10 06:12 | NUR ---
PATIENT ALERT AND ORIENTED X4. C/O PAIN. DENIES N/V. ABLE TO KEEP SOLID FOODS DOWN. SLEPT MOST OF THE NIGHT. UP IN HALLS.
[2019-04-10 07:52] VITALS: BP 131/80
[2019-04-10] MEDS ORDERED: NORCO 5-325 TA1 EAC1 PO (12:33)
[2019-04-10] MEDS ORDERED: IBUPROFEN 400400 M2 PO (12:33)
[2019-04-10] MEDS ORDERED: COLACE 100 MG100 MG PO (12:33)
[2019-04-10 12:50] VITALS: BP 131/80
--- NOTE | 2019-04-10 13:13 | NUR ---
ASSUMED CARE AROUND 1900. AXOX4. SURGICAL SITE DCI WITH DERMABOND. PT WAS SEEN BY AT BEDSIDE. D/C HOME WITH PRESCRIPTIONS. ALL D/C INSTRUCTIONS AND AND PRESCRIPTION GIVEN TO PT AT [facility]. ALL QUESTIONS AND CONCERNS ANSWERED. AWAITING P/U BY MOTHER.
--- NOTE | 2019-05-01 09:44 | O ---
[facility] [place] [address] OPERATIVE REPORT Name: ESME TAVAREZ Room #: 445-P [facility] IN M.R.#: [id number] Admission: 04/07/19 Attend Phys: Stephania Shahid DO Discharge: 04/10/19 Date of : 77 Report #: [id number] THIS REPORT FOR: //name// CC: Matt Shahid DATE OF SERVICE: 04/07/2019 PREOPERATIVE DIAGNOSES: 1. Uterine fibroids. 2. Menorrhagia. 3. Pelvic pain. 4. Mirena intrauterine device. POSTOPERATIVE DIAGNOSES: 1. Uterine fibroids. 2. Menorrhagia. 3. Pelvic pain. 4. Mirena intrauterine device. OPERATIVE PROCEDURE: Laparoscopy converted to total abdominal hysterectomy, bilateral salpingectomy and right oophorectomy. SURGEON: Stephania Shahid DO. ANESTHESIA: General. INTRAVENOUS FLUIDS: 1700 mL. URINE OUTPUT: 75 mL. ESTIMATED BLOOD LOSS: 250 mL. COMPLICATIONS: None. DESCRIPTION OF PROCEDURE: The patient was taken to the operating room, where general anesthesia was administered and found to be adequate. She was then prepped and draped in normal sterile fashion in dorsal lithotomy position. A Morales catheter was placed in the patient's bladder. The bladder was drained of urine. A weighted speculum was placed in the patient's vagina. The anterior lip of the cervix was identified and grasped with a single-tooth tenaculum. There was no visualization of Mirena IUD strings, nor was there any IUD strings noted to be within the cervical os. The uterus was then gently sounded to approximately 11 cm, and a VCare uterine manipulator was placed through the cervix, gently advanced into the uterus. The balloon was inflated. The single-tooth tenaculum was removed from the patient's cervix. The VCare cup was [facility] [address] [place] [address] OPERATIVE REPORT Name: CORBYESME Room #: 445-P [facility] IN M.R.#: [id number] Admission: 04/07/19 Attend Phys: Stephania Shahid DO Discharge: 04/10/19 Date of : 77 Report #: [id number] placed over the cervix and fashioned in place. The weighted speculum was removed from the patient's vagina. Sterile gloves were changed and attention was then turned to the patient's abdomen. A 5-mm infraumbilical incision was made with a scalpel. A 5 mm trocar was placed through this incision under direct visualization of the laparoscope. No insertional trauma was identified. The patient was then placed in Trendelenburg position after pneumoperitoneum was allowed to accumulate using carbon dioxide gas. Survey of the patient's abdomen revealed an enlarged uterus with a large anterior fibroid, normal fallopian tubes and ovaries bilaterally. Survey also revealed a right broad ligament hematoma. A second incision was made in the patient's left lower quadrant and a 5-mm trocar inserted through this incision. There was no insertional trauma after placement of the trocar. A 5-mm incision was then made in the patient's abdomen on the patient's right lower quadrant. A 5-mm trocar was placed through this incision under direct visualization of laparoscope. Again, no insertional trauma was identified. The bowel was swept cephalad, and attention was turned to the patient's left fallopian tube. This was followed out to its fimbriated end and using the LigaSure device, it was transected underneath the fallopian tube across the mesosalpinx. Next, the left utero-ovarian ligament was transected followed by the left round ligament as well as the left broad ligament. Excellent hemostasis was noted. The vesicouterine peritoneum was identified and transected using the handheld LigaSure device. Attention was then turned to the patient's right pelvis, where it was noted that there was a broad ligament hematoma that appeared to be actively expanding. There was no trauma noted to the area at any point during the procedure thus far. The uterine manipulator was in its normal place. There had been no traction or grasping of the broad ligament with any instrumentation. There was, on the posterior aspect, active bleeding noted from the broad ligament. It was decided at this point in time to convert to an open procedure due to the trauma and hematoma that was accumulating. The pneumoperitoneum was allowed to escape. All trocars were removed from the patient's abdomen, as instrument counts were being performed. The laparoscopic incisions were closed with 4-0 Monocryl, and excellent hemostasis was noted of all laparoscopic incisions. Once instruments and laps were counted, a Pfannenstiel incision was made in the patient's abdomen, approximately 2 cm above the symphysis pubis and carried through to the underlying layer of fascia. The fascia was nicked in the midline. The incision was carried laterally with Weinberg scissors. The superior aspect of the fascial incision was grasped with Margarita clamps, elevated and the underlying rectus muscle dissected off bluntly as well as with Weinberg scissors. Attention was then turned to the inferior aspect of this incision, which in a similar fashion was grasped with Margarita clamps, elevated and the underlying layer of fascia dissected off bluntly as well as with Weinberg scissors. The rectus muscles were in the midline. The peritoneum was identified, tented upward with curved stats and entered sharply with Metzenbaum scissors. The peritoneal [address] [place] [address] OPERATIVE REPORT Name: ESME TAVAREZ Room #: 445-P [facility] IN M.R.#: [id number] Admission: 04/07/19 Attend Phys: Stephania Shahid DO Discharge: 04/10/19 Date of : 77 Report #: [id number] incision was then extended superiorly and inferiorly with good visualization. The Carmen retractor was placed in the patient's abdomen. The patient was repositioned into Trendelenburg position. The bowel was then packed with moist laparotomy sponges cephalad. The uterus was grasped with a Hadley and the broad ligament was further inspected. Due to the extent of the hematoma, the right ovary was noted to be adhered to the fallopian tube as well as the posterior aspect of the broad ligament and deviated medially. Therefore, the infundibulopelvic ligament was grasped with a [place] clamp and then it was transected with a handheld LigaSure. This was followed by transection of the broad ligament as well as the round ligament. Excellent hemostasis was noted of the pedicle and the hematoma was noted to be contained in the portion that was transected next to the uterus. The vesicouterine peritoneum was identified in the right aspect of the pelvis, was tented upward with a DeBakey, undermined with Metzenbaum scissors and transected with Metzenbaum scissors. The vesicouterine peritoneum was then dissected off the anterior aspect of the uterus and cervix. Straight Blue clamps were then used to clamp the uterine arteries as well as cardinal ligament complexes. These were transected and tied with 0 Vicryl. Excellent hemostasis was noted. Z clamps were then used to clamp below the cervix across the cervicovaginal junction and the cervix was then transected using Tj scissors. The uterus with cervix attached as well as bilateral fallopian tubes and right ovaries were then handed off for pathological specimen. Using 0 Vicryl, the vaginal cuff was then reapproximated with Blue stitches underneath the Z clamps. There was a small amount of bleeding noted at the posterior aspect of the vaginal cuff. Therefore, the vaginal cuff was oversewn in a running fashion using 0 Vicryl. Excellent hemostasis was then noted of the vaginal cuff. Copious irrigation was performed of the pelvis. All irrigant was removed via suction. Excellent hemostasis was noted of all pedicles including the vaginal cuff. Oswald was placed over the vaginal cuff. All sponges were removed from the patient's abdomen. The bowel was placed in its normal anatomical position. The retractor was removed from the patient's abdomen. All bowel was placed in its normal anatomical position. The muscle and peritoneum were reapproximated with 2-0 Vicryl. Muscles were irrigated and noted to be hemostatic. The fascia was reapproximated with 0 Vicryl in a running fashion. Subcutaneous tissue was then irrigated. Bovie cautery was used to obtain hemostasis. Subcutaneous tissue was then reapproximated using 3-0 plain and the skin was closed in a subcuticular fashion using 4-0 Monocryl. The patient tolerated the procedure well. Sponge, lap and needle counts were reported as correct, and the patient was taken to the recovery room in stable condition. <ELECTRONICALLY SIGNED> By: Stephania Shahid DO 05/01/19 [id number] [id number] Stephania hSahid DO /nt
== END 2019-04-10 13:32 | disposition home or self-care (01) | DRG 742 ==
LOC: OR 08:13 → TBA 09:02 → OR 12:18 → 4S 15:16 → OR 15:16 → ENTRNSPT 04-10 13:21 → EDTRNSPTSTS 04-10 13:24 → 4S 04-10 13:32
PROVIDERS: ADMIT Obstetrics & Gynecology
DX: D25.9 Leiomyoma of uterus, unspecified (principal); D62 Acute posthemorrhagic anemia; N92.4 Excessive bleeding in the premenopausal period; N92.0 Excessive and frequent menstruation with regular cycle; Z97.5 Presence of (intrauterine) contraceptive device; Z79.899 Other long term (current) drug therapy; Z88.8 Allergy status to other drugs, medicaments and biological substances; Z88.6 Allergy status to analgesic agent; Z91.041 Radiographic dye allergy status; Z91.040 Latex allergy status
CPT/HCPCS: 10102; 50010; 50093; 50101; 50249; 50386; 50400; 50455; 50555; 50558; 50685; 50900; 50962; 51489; 51687; 52265; 52287; 53307; 54118; 56524; 56525; 56526; 56719; 62110; 62900; 70005